=== PATIENT | female | born 1950 | race Caucasian/White ===

== ENCOUNTER 2020-12-28 10:24 | Outpatient (CLI) | payer MEDICARE, OTHER ==
--- NOTE | 2020-12-29 09:37 | Mammography Report ---
BILATERAL DIGITAL SCREENING MAMMOGRAM 3D/2D: 12/28/2020 CLINICAL: Routine screening. Comparison is made to exams dated: 01/05/2018 mammogram, 12/20/2015 mammogram, 01/19/2013 mammogram, an d 01/20/2012 mammogram - [facility]. The tissue of both breasts is predominantly fatty. There are benign calcifications in both breasts. No significant masses, calcifications, or other findings are seen in either breast. There has been no significant interval change. IMPRESSION: BENIGN There is no mammographic evidence of malignancy. A 1 year screening mammogram is recommended. This exam was interpreted at Station ID: [id number]. NOTE: For mammograms, a report in lay terms will be sent to the patient. Approximately 15% of breast malignancies will not be visualized mammographically. In the management of a palpable breast mass, a negative mammogram must not discourage biopsy of a clinically suspicious lesion. Electronically Signed By: Anshul Morales acr/penrad:12/28/2020 12:14:38 ACR BI-RADS Category 2: Benign Finding(s) 3342F PARENCHYMAL PATTERN: (F) - The breast(s) demonstrate(s) diffuse fatty replacement. BI-RADS CATEGORY: (2) - 2 RECOMMENDATION: (ANNUAL) - Recommend routine annual screening mammography. [id number] 1 year screening LATERALITY: (B)
== END 2020-12-28 10:25 | disposition home or self-care (01) ==
LOC: DI.N 10:24
PROVIDERS: ATTEND Physician Assistant
DX: Z12.31 Encounter for screening mammogram for malignant neoplasm of breast (principal)

== ENCOUNTER 2021-12-03 15:24 | Outpatient (CLI) | payer MEDICARE, OTHER ==
--- NOTE | 2021-12-03 18:08 | XRAY Report ---
PROCEDURE: Chest 2 View X-Ray INDICATIONS: HEART FAILURE, LAST ECHO SHOWED DIASTOLIC DSFX TECHNIQUE: 2 views of the chest. COMPARISON: None. 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 Lungs and pleura: No pleural effusions or pneumothorax. Lungs are clear. Mediastinum: Prominent pulmonary artery contour is noted. Otherwise normal cardiac mediastinal silhou ette. Bones and chest wall: No suspicious bony abnormalities. Soft tissues appear unremarkable. Mild mult ilevel degenerative changes in the spine. IMPRESSION: No acute cardiopulmonary abnormality. Mild prominence of the main pulmonary artery borde r may indicate underlying pulmonary hypertension. CT could be performed for further evaluation if ind icated clinically. Reviewed by: Gino Palencia MD on 12/03/2021 6:06 PM PDT Approved by: Gino Palencia MD on 12/03/2021 6:06 PM PDT Station ID: [id number]
== END 2021-12-03 15:25 | disposition home or self-care (01) ==
LOC: DI 15:24
PROVIDERS: ATTEND Physician Assistant
DX: Z01.818 Encounter for other preprocedural examination (principal); I50.9 Heart failure, unspecified; I51.9 Heart disease, unspecified

== ENCOUNTER 2021-12-19 12:45 | Outpatient (CLI) | payer MEDICARE, OTHER ==
--- NOTE | 2021-12-19 16:55 | DEXA Report ---
PROCEDURE: Dexa Spine and/or Hip INDICATIONS: POST MENOPAUSAL TECHNIQUE: Dual energy x-ray absorptiometry (DXA) was performed on a [employer] System. Regions measur ed are the AP Spine, femoral neck, and if needed forearm. COMPARISON: 03/20/2016, 12/26/ and 16 and 12/19/2004. FINDINGS: Lumbar Spine: Bone Mineral Density 1.5 x 0 g/cm/cm,T score 2.9, normal Left Hip: Bone Mineral Density 1.140 g/cm/cm,T score 1.1, normal Left Femoral Neck: Bone Mineral Density 1.041 g/cm/cm, T score 0.0, normal (T score greater or equal to -1.0: NORMAL) (T score from -1.1 to -2.4: OSTEOPENIA) (T score less than or equal to -2.5 to: OSTEOPOROSIS) Impression: Normal bone mineral density. Bone mineral density is decreased 8.4% in the interval since prior exam obtained 03/20/2016. Patients with diagnosis of osteoporosis or osteopenia should have regular bone mineral density assess ment. For those eligible for Medicare, routine testing is allowed once every 2 years. Testing frequ ency can be increased for patients who have rapidly progressing disease or for those who are receivin g medical therapy to restore bone mass. Reviewed by: Alana Mcginnis MD, PhD on 12/19/2021 4:53 PM PDT Approved by: Alana Mcginnis MD, PhD on 12/19/2021 4:53 PM PDT Station ID: [id number]
== END 2021-12-19 12:46 | disposition home or self-care (01) ==
LOC: DI 12:45
PROVIDERS: ATTEND Physician Assistant
DX: Z78.0 Asymptomatic menopausal state (principal); N95.8 Other specified menopausal and perimenopausal disorders

== ENCOUNTER 2022-12-24 10:19 | Outpatient (CLI) | payer MEDICARE, OTHER ==
--- NOTE | 2022-12-25 10:04 | Mammography Report ---
BILATERAL DIGITAL SCREENING MAMMOGRAM 3D/2D: 12/24/2022 CLINICAL: Routine screening. Comparison is made to exams dated: 12/28/2020 mammogram - [facility], 01/05/2018 [facility], and 12/20/2015 mammogram - [facility]. Both breasts are almost entirely fatty (category a/<25% glandular tissue). There are benign calcifications in both breasts. No significant masses, calcifications, or other findings are seen in either breast. There has been no significant interval change. IMPRESSION: BENIGN There is no mammographic evidence of malignancy. A 1 year screening mammogram is recommended. Based on the Tyrer Cuzick model (a risk assessment model) the patients lifetime risk is 2.7% and her 10 year risk is 2.0%. According to the ACR, ACS, and NCCN guidelines, an annual breast MRI exam lois g with mammogram is recommended if the patients lifetime risk is 20% or greater. This exam was interpreted at Station ID: [id number]. NOTE: For mammograms, a report in lay terms will be sent to the patient. Approximately 15% of breast malignancies will not be visualized mammographically. In the management of a palpable breast mass, a negative mammogram must not discourage biopsy of a clinically suspicious lesion. Electronically Signed By: Oren crump/rayo:12/24/2022 19:03:04 letter sent: No_Letter ACR BI-RADS Category 2: Benign Finding(s) 3342F PARENCHYMAL PATTERN: (F) - The breast(s) demonstrate(s) diffuse fatty replacement. BI-RADS CATEGORY: (2) - 2 Mammogram [id number] 1 year screening LATERALITY: (B)
== END 2022-12-24 10:20 | disposition home or self-care (01) ==
LOC: DI.N 10:19
PROVIDERS: ATTEND Physician Assistant
DX: Z12.31 Encounter for screening mammogram for malignant neoplasm of breast (principal)

== ENCOUNTER 2023-12-11 09:52 | Outpatient (CLI) | payer MEDICARE, OTHER ==
--- NOTE | 2023-12-12 11:34 | Mammography Report ---
BILATERAL DIGITAL SCREENING MAMMOGRAM 3D/2D: 12/11/2023 CLINICAL: Routine screening. Comparison is made to exams dated: 12/24/2022 mammogram, 12/28/2020 mammogram - [facility], 01/05/2018 mammogram, 12/20/2015 mammogram, 01/19/2013 mammogram, and 01/20/2012 mammogram - [facility]. Both breasts are almost entirely fatty (category a/<25% glandular tissue). There are benign calcifications in both breasts. No significant masses, calcifications, or other findings are seen in either breast. There has been no significant interval change. IMPRESSION: BENIGN There is no mammographic evidence of malignancy. A 1 year screening mammogram is recommended. Based on the Tyrer Cuzick model (a risk assessment model) the patient's lifetime risk is 2.5% and her 10 year risk is 2.1%. According to the ACR, ACS, and NCCN guidelines, an annual breast MRI exam lois g with mammogram is recommended if the patient's lifetime risk is 20% or greater. This exam was interpreted at Station ID: [id number]. NOTE: For mammograms, a report in lay terms will be sent to the patient. Approximately 15% of breast malignancies will not be visualized mammographically. In the management of a palpable breast mass, a negative mammogram must not discourage biopsy of a clinically suspicious lesion. Electronically Signed By: Adelfo escalante/rayo:12/11/2023 10:46:53 letter sent: No_Letter ACR BI-RADS Category 2: Benign Finding(s) 3342F PARENCHYMAL PATTERN: (F) - The breast(s) demonstrate(s) diffuse fatty replacement. BI-RADS CATEGORY: (2) - 2 RECOMMENDATION: (ANNUAL) - Recommend routine annual screening mammography. [id number] 1 year screening LATERALITY: (B)
== END 2023-12-11 09:53 | disposition home or self-care (01) ==
LOC: DI.N 09:52
DX: Z12.31 Encounter for screening mammogram for malignant neoplasm of breast (principal)